=== PATIENT | female | born 1990 | race Caucasian/White ===

== ENCOUNTER → 2018-12-06 | Outpatient (CLI) | payer BC ==
[~2018-12-06] MED LIST: AMITRIPTYLINE H10 M1 PO; DEXILANT60 MG PO; DIFLUCAN200 MG PO; DULERA 100 MCG/13 GM INH; FLONASE 0.05%50 MCG NASAL; METFORMIN HCL500 MG PO; MOXIFLOXACIN3 ML OPHTHALMIC; SYNTHROID50 MCG PO; UNICOMPLEX M TA1 TA1 PO
--- NOTE | 2018-12-06 15:14 | NUR ---
VASCULAR ACCESS CONSULTED FOR PICC PLACEMENT. PT'S HISTORY,MEDS,ORDER AND CONSENT VERIFIED. DISCUSSED BENEFITS AND RISK WITH PT,VERBALIZED UNDERSTANDING. SHERLY BRACHIAL WAS WIDELY PATENT WITH USG,1% LIDOCAINE GIVEN SQ. 4FR SL POWER PICC TRIMMED TO 45CM INSERTED TO OCM PER HOSPITAL POLICY. STAT CXR OBTAINED. WALLET CARD GIVEN TO PT.
--- NOTE | 2018-12-06 15:54 | NUR ---
LINE WITHDREW 2CM THEN CXR STATED TO WITHDRAW ADDITIONAL 4CM. WITHDREW FOR TOTAL OF 6CM. STAT CXR ORDERED.
--- NOTE | 2018-12-06 16:40 | NUR ---
IN FOR PICC LINE PLACEMENT AND 1ST DOSE OF CEFEPIME FOR PSEUDOMONAS SINUS INFECTION/ABSCESS. IV TEAM PLACED PICC IN SHERLY AND VERIFIED PLACEMENT WITH CXR. CEFEPIME GIVEN ORDERED AND TOLERATED WELL WITHOUT INCIDENT. PATIENT STATED HAD A DOSE OF CEFEPIME IN THE HOSPITAL AND HAD NO REACTION. [facility] CAME AND GAVE INSTRUCTIONS ON HOW TO GIVE CEFEPIME AT HOME. PATIENT DEMONSTRATED PROPER FLUSHING TECHNIQUE. DISMISSED HOME IN STABLE CONDITION.
--- NOTE | 2018-12-06 16:42 | NUR ---
picc released for immediate use per protocol to Kerri MIRELES
== END ==
LOC: OPONC 13:42
DX: A49.8 Other bacterial infections of unspecified site (principal); H05.011 Cellulitis of right orbit; Z16.35 Resistance to multiple antimicrobial drugs
CPT/HCPCS: 27000; 95000